=== PATIENT | female | born 1955 | race Caucasian/White ===

== ENCOUNTER 2017-05-13 07:52 | Emergency (ER) | payer OTHER ==
[~2017-05-13] VITALS: Ht 154.9 cm; Wt 62.0 kg
[2017-05-13 07:56] VITALS: Ht 154.9 cm; Wt 62.0 kg
[2017-05-13] MEDS ORDERED: BEN25 PO (08:25)
[2017-05-13] MEDS ORDERED: CETI10CA PO (08:25)
[2017-05-13] MEDS ORDERED: DIPHENHYDRAMINE 25 MG CAP PO ONE (08:30)
--- NOTE | 2017-05-13 08:44 | ERD ---
ER Documentation Chief Complaint Chief Complaint rashes/itchiness all over the body HPI 61-year-old female, currently taking terbinafine over the last week, also taking vitamin D and calcium tablets, Boniva, comes in with a diffuse rash that started at 3 AM this morning with itching. She denies any other new foods, medications lotions or creams. She states that she had been taking Boniva for 6 quite a while but took a break because of the cost of the medication she started taking it again on the last time was yesterday. She also has been treated for onychomycosis with terbinafine which she has been taking for little bit less than a week. She denies shortness of breath, facial swelling, tongue swelling, chest pain. ROS All systems reviewed and are negative except as per history of present illness. Medications Home Meds Active Scripts Cetirizine Hcl* (Zyrtec*) 10 Mg Capsule, 10 MG PO DAILY, #10 TAB.CHEW Prov:CLAUDINE TRUJILLO PA-C 05/13/17 Diphenhydramine Hcl* (Benadryl*) 25 Mg Cap, 25 MG PO Q6, #30 CAP Prov:CLAUDINE TRUJILLO PA-C 05/13/17 PMhx/Soc Medical and Surgical Hx: pt denies Medical Hx, pt denies Surgical Hx Hx Alcohol Use: Yes Physical Exam Vitals Vital Signs Date Time Temp Pulse Resp B/P Pulse Ox O2 Delivery O2 Flow Rate FiO2 05/13/17 07:56 98.0 87 19 122/73 99 Physical Exam General: Well-developed, well-nourished. The patient appears in no acute distress. HEENT: Head is normocephalic, atraumatic. No scleral icterus. There is no angioedema. Neck: Supple. Nontender. Lungs: Clear to auscultation. Normal air movement. Heart: Regular rate and rhythm. S1 and S2 are normal. No murmurs, gallops, or rubs. Abdomen: Soft, nontender, nondistended. Bowel sounds are normoactive. Extremities: No clubbing or cyanosis. Normal pulses. Moving extremities x 4. No weakness. Neurologic: Alert and oriented 3. No focal deficits. Skin: diffuse macular rash, is erythematous, flattened, we will like. It is on extremities, trunk. Rash is blanchable. Results 24 hrs Current Medications Medications (Trade) Dose Ordered Sig/Armando Route PRN Reason Start Time Stop Time Status Last Admin Dose Admin Diphenhydramine HCl (Benadryl) 25 mg ONCE ONCE PO 05/13/17 08:30 05/13/17 08:31 DC 05/13/17 08:20 Procedures/MDM 61-year-old female comes in with a rash, the patient's only new medication appears to be terbinafine, likely a drug reaction. She was advised to discontinue the medication follow-up with her doctor regarding vacation management. She does have a diffuse rash, and she was offered steroids with Benadryl in the emergency department but she states that she does not want to have any weight gain with steroids. I advised that the Benadryl as well as steroids are given for different purposes and Benadryl may not be enough to treat her symptoms. Therefore at this time although patient was counseled and advised she has refused any form of steroids including orals. She will be given Benadryl and Zyrtec to continue at home. Patient's allergic symptoms have stabilized while they have been evaluated in the department without evidence of persistent systemic reaction. Patient is healthy and capable of treating and responding to rebound reactions. Patient appropriate for outpatient allergy work up and treatment. Departure Diagnosis: Primary Impression: Rash Condition: Good Patient Instructions: Dermatitis, Non-Specific CLAUDINE TRUJILLO PA-C May 13, 2017 08:44
[2017-05-14] MEDS ORDERED: MED4DP PO (07:21)
== END 2017-05-13 08:41 | disposition home or self-care (01) ==
LOC: FTE 07:52
DX: R21 Rash and other nonspecific skin eruption (principal)
CPT/HCPCS: Z7502; Z7610; 99283

== ENCOUNTER 2017-05-14 05:47 | Emergency (ER) | payer OTHER ==
[~2017-05-14] VITALS: Ht 162.6 cm; Wt 63.0 kg
[~2017-05-14 05:47] MED LIST: BEN25 PO; CETI10CA PO
[2017-05-14 05:49] VITALS: Ht 162.6 cm; Wt 63.0 kg
[2017-05-14 06:50] LABS: EOSINOPHILS # 0.1 10^3/ul (0.0-0.5); EOSINOPHILS % 0.9 % (0.0-7.0); HEMATOCRIT 38.5 % (37.0-47.0); HEMOGLOBIN 12.9 g/dl (12.0-16.0); LYMPHOCYTES # 1.2 10^3/ul (0.8-2.9); LYMPHOCYTES % 18.5 % (15.0-51.0); MEAN CORPUSCULAR HEMOGLOBIN 30.1 pg (29.0-33.0); MEAN CORPUSCULAR HGB CONC 33.5 g/dl (32.0-37.0); MONOCYTE # 0.3 10^3/ul (0.3-0.9); MONOCYTES % 4.5 % (0.0-11.0); NEUTROPHIL # 5.1 10^3/ul (1.6-7.5); NEUTROPHILS % 75.9 % (39.0-77.0); PLATELET COUNT 281 10^3/UL (140-415); RED BLOOD COUNT 4.28 10^6/ul (4.20-5.40); WHITE BLOOD COUNT 6.7 10^3/ul (4.8-10.8)
[2017-05-14 07:12] LABS: ALBUMIN/GLOBULIN RATIO 1.21; BILIRUBIN,INDIRECT 0.3 mg/dl (0-1.1); BILIRUBIN,TOTAL 0.3 mg/dl (0.2-1.3); CALCIUM 8.9 mg/dl (8.4-10.2); CREATININE 0.83 mg/dl (0.44-1.00); POTASSIUM 3.8 mmol/L (3.5-5.1); TOTAL PROTEIN 7.3 g/dl (6.1-8.1)
[2017-05-14] MEDS ORDERED: MED4DP PO (07:21)
--- NOTE | 2017-05-14 08:40 | ERD ---
ER Documentation Chief Complaint Chief Complaint c/o worsening body rash. Seen here for same 05/13/17. (Dermatitis) HPI 61-year-old female complaining of rash on abdomen and arms. Patient has been taking Benadryl with mild alleviation of symptoms but when Benadryl wears off she states the rash returns and states to be worsening. She is requesting blood work at this time. Believes that her rash developed after taking medication she was recently prescribed. Patient denies any facial swelling or troubles breathing. Patient states that her rash is pruritic in nature. ROS All systems reviewed and are negative except as per history of present illness. Medications Home Meds Active Scripts Methylprednisolone* (Medrol* DOSE PACK) 4 Mg/Dose-Pack Tab.ds.pk, 4 MG PO . DIRECTED, #1 PACKET Prov:NAY NAYLOR PA-C 05/14/17 Cetirizine Hcl* (Zyrtec*) 10 Mg Capsule, 10 MG PO DAILY, #10 TAB.CHEW Prov:CLAUDINE TRUJILLO PA-C 05/13/17 Diphenhydramine Hcl* (Benadryl*) 25 Mg Cap, 25 MG PO Q6, #30 CAP Prov:CLAUDINE TRUJILLO PA-C 05/13/17 PMhx/Soc Medical and Surgical Hx: pt denies Medical Hx, pt denies Surgical Hx Hx Alcohol Use: No Hx Substance Use: No Hx Tobacco Use: No Smoking Status: Never smoker Physical Exam Vitals Vital Signs Date Time Temp Pulse Resp B/P Pulse Ox O2 Delivery O2 Flow Rate FiO2 05/14/17 05:49 98.0 89 20 132/82 100 Physical Exam GENERAL: The patient is well-appearing, well-nourished, in no acute distress HEENT: Atraumatic. Conjunctivae are pink. Pupils equal, round, and reactive to light. There is no scleral icterus. Tympanic membranes clear bilaterally. Oropharynx clear. No nystagmus or photophobia. NECK: C-spine is soft and supple. There is no meningismus. There is no cervical lymphadenopathy. CHEST: Clear to auscultation bilaterally. There are no rales, wheezes or rhonchi. HEART: Regular rate and rhythm. No murmurs, clicks, rubs or gallops. No S3 or S4. SKIN: Erythematous macules with central clearing noted on torso and arms. No elevation. No vesicles. HEMATOLOGIC AND LYMPHATIC: There is no evidence of excessive bruising or lymphadenopathy. No gross cervical, axillary, or inguinal lymphadenopathy. Result Diagram: 05/14/17 0630 05/14/17 0630 Results 24 hrs Laboratory Tests Test 05/14/17 06:30 White Blood Count 6.710^3/ul Red Blood Count 4.2810^6/ul Hemoglobin 12.9g/dl Hematocrit 38.5% Mean Corpuscular Volume 90.0fl Mean Corpuscular Hemoglobin 30.1pg Mean Corpuscular Hemoglobin Concent 33.5g/dl Red Cell Distribution Width 13.0% Platelet Count 24464^3/UL Mean Platelet Volume 10.0fl Neutrophils % 75.9% Lymphocytes % 18.5% Monocytes % 4.5% Eosinophils % 0.9% Basophils % 0.0% Nucleated Red Blood Cells % 0.0/100WBC Neutrophils # 5.110^3/ul Lymphocytes # 1.210^3/ul Monocytes # 0.310^3/ul Eosinophils # 0.110^3/ul Basophils # 0.010^3/ul Nucleated Red Blood Cells # 0.010^3/ul Sodium Level 145mmol/L Potassium Level 3.8mmol/L Chloride Level 108mmol/L Carbon Dioxide Level 29mmol/L Anion Gap 12 Blood Urea Nitrogen 12mg/dl Creatinine 0.83mg/dl Glucose Level 80mg/dl Calcium Level 8.9mg/dl Total Bilirubin 0.3mg/dl Direct Bilirubin 0.00mg/dl Indirect Bilirubin 0.3mg/dl Aspartate Amino Transf (AST/SGOT) 32IU/L Alanine Aminotransferase (ALT/SGPT) 32IU/L Alkaline Phosphatase 104IU/L Total Protein 7.3g/dl Albumin 4.0g/dl Globulin 3.30g/dl Albumin/Globulin Ratio 1.21 Procedures/MDM ER course: Blood work drawn all results within normal limits. MDM: 61-year-old female complaining of rash. Patient's rash appears to be urticarial in nature. I have low suspicion for fungal, bacterial or parasitic rash. Patient is recommended to take steroids however she refuses. I will write a prescription for steroids in case patient changes her mind. I have low suspicion for life-threatening rash. Patient's blood work is within normal limits exam is non-concerning. Patient is discharged with strict ER precautions and recommended to follow-up with primary care within 1-2 days for close evaluation. All questions answered at discharge per Departure Diagnosis: Primary Impression: Urticaria Condition: Stable Patient Instructions: Delfin Additional Instructions: FOLLOW UP WITH YOUR PRIMARY CARE PHYSICIAN TOMORROW.Return to this facility if you are not improving as expected. NAY NAYLOR PA-C May 14, 2017 08:40
== END 2017-05-14 07:30 | disposition home or self-care (01) ==
LOC: FTE 05:47
DX: L50.9 Urticaria, unspecified (principal)
CPT/HCPCS: 80053; 85025; Z7502; 99283